=== PATIENT | male | born 1975 ===

== ENCOUNTER 2022-07-12 07:28 | Emergency (ER) | payer OTHER ==
[~2022-07-12] VITALS: Ht 165.1 cm; Wt 72.6 kg
[~2022-07-12 07:28] MED LIST: [UNRECOGNIZED DRUG - REMARK]
== END 2022-07-12 13:06 | disposition home or self-care (01) ==
LOC: ER 07:28
DX: R42 Dizziness and giddiness (principal)

== ENCOUNTER 2024-11-15 08:31 | Outpatient (CLI) | payer OTHER | END 2024-11-15 09:00 | disposition home or self-care (01) | LOC: RAD 08:31 | PROVIDERS: ATTEND Specialist | DX: S62.601A Fracture of unspecified phalanx of left index finger, initial encounter for closed fracture (principal); X58.XXXA Exposure to other specified factors, initial encounter; Y93.9 Activity, unspecified; Y92.9 Unspecified place or not applicable; Y99.9 Unspecified external cause status ==

== ENCOUNTER → 2025-04-17 | Outpatient (CLI) | payer OTHER | END | disposition home or self-care (01) | LOC: RAD 11:43 | PROVIDERS: ATTEND Specialist | DX: M25.569 Pain in unspecified knee (principal) ==

== ENCOUNTER 2025-04-25 13:32 | Outpatient (CLI) | payer OTHER ==
[2025-04-28] MEDS ORDERED: [UNRECOGNIZED DRUG - OTHER] (09:56)
== END 2025-04-25 13:39 | disposition home or self-care (01) ==
LOC: MRI 13:32
PROVIDERS: ATTEND Specialist
DX: M25.562 Pain in left knee (principal)
CPT/HCPCS: 73721

== ENCOUNTER 2025-05-02 06:00 | Day surgery (SDC) | payer OTHER ==
[2025-04-28 09:57] VITALS: BP 115/76
[2025-04-28 10:59] LABS: BASO % 0.6 % (0.1-1.2); EOS # 0.06 (0.04-0.54); EOS % 1.2 % (0.7-7.0); LYMPH # 2.32 (1.18-3.74); LYMPH % 48.2 % (19.3-53.1); MEAN PLATELET VOLUME 11.30 fl (9.4-12.4); MONO # 0.42 (0.24-0.82); MONO % 8.7 % (4.7-12.5); NEUT # 1.95 (1.56-6.13); NEUT % 40.7 % (34.0-71.1); RED CELL DISTRIBUTION WIDTH 11.5 % (11.6-14.4)
[2025-04-28 11:13] LABS: URINE APPEARANCE Clear; URINE BILIRRUBIN Negative (NEGATIVE); URINE BLOOD Negative; URINE COLOR Yellow; URINE GLUCOSE Negative (NEGATIVE); URINE KETONE Negative (NEGATIVE); URINE LEUKOCYTE Negative; URINE NITRATE Negative; URINE PROTEIN Negative (NEGATIVE); URINE UROBILINOGEN 0.2 E.U./dl
[2025-04-28 11:15] LABS: COL EPI 78 SECONDS (82-175)
[2025-04-28 11:26] LABS: URINE BACTERIA 3.5 uL (0.0-1933); URINE CAST 0.00 uL (0.0-1.40); URINE EPITHELIAL CELLS 0.1 uL (0.0-38.8); URINE RBC 1.4 uL (0.0-20.8); URINE WBC 0.7 uL (0.0-23.2)
[2025-04-28 11:50] LABS: INR 1.06
[2025-04-28 12:03] LABS: ALT/SGPT 78.0 U/L (12-78); AST/SGOT 47.0 U/L (15-37); BILIRUBIN TOTAL 0.52 mg/dL (0.3-1.2); BUN CREA RATIO 23.0 (7.0-25.0); CREATININE SERUM 1.19 mg/dL (0.70-1.30); GFR 64.71; GLOBULINA 3.7 G/DL (2.4-3.5); GLUCOSE FASTING 91.0 mg/dL (65-100); OSMOLALITY SERUM 282.0 MOSM/KG (275-295)
[~2025-05-02] VITALS: Ht 165.1 cm; Wt 79.4 kg
[~2025-05-02 06:00] MED LIST changes: +[UNRECOGNIZED DRUG - OTHER]
[2025-05-02] MEDS ORDERED: CEFAZOLIN SODIUM 1,000 MG VIAL ONE (07:02)
[2025-05-02] MEDS ORDERED: EPINEPHRINE HCL/PF 1 MG/ML AMPUL ONE (07:20)
[2025-05-02] MEDS ORDERED: BUPIVACAINE HCL/MPF 0.5% 30ML VIAL ONE (07:20)
[2025-05-02] MEDS ORDERED: LIDOCAINE HCL 1%/EPINEPHRINE 20ML VIAL IJ ONE (07:21)
== END 2025-05-02 13:06 | disposition home or self-care (01) ==
LOC: CIR.AMB 06:00
PROVIDERS: ATTEND Orthopaedic Surgery
DX: M23.232 Derangement of other medial meniscus due to old tear or injury, left knee (principal); M65.862 Other synovitis and tenosynovitis, left lower leg; M23.8X2 Other internal derangements of left knee; Z88.6 Allergy status to analgesic agent